=== PATIENT | female | born 1960 | race Caucasian/White ===

== ENCOUNTER 2017-05-02 13:05 | Inpatient (IN) | payer MEDICARE, OTHER ==
[~2017-05-02] VITALS: Ht 167.6 cm; Wt 79.4 kg
--- NOTE | 2017-05-02 13:30 | NUR ---
PATIENT BROUGHT IN BY PRIVATE AMBULANCE FROM [facility] ON A 5150 HOLD FOR DTS FOR SI. PATIENT UPON ARRIVAL A/OX3,CALM AND COOPERATIVE.DENIES SI,HALLUCINATION AT THIS TIME. NO DISTRESS NOTED
[2017-05-02] MEDS ORDERED: TOPI100T38 PO (13:36)
[2017-05-02] MEDS ORDERED: CLON1TAB4 PO (13:36)
[2017-05-02] MEDS ORDERED: TRAZ-147 PO (13:36)
[2017-05-02] MEDS ORDERED: RISP2TAB5 PO (13:36)
[2017-05-02] MEDS ORDERED: HYDR-548 PO (13:36)
[2017-05-02] MEDS ORDERED: GABA-532 PO (13:36)
[2017-05-02] MEDS ORDERED: VENL100T4 PO (13:36)
[2017-05-02] MEDS ORDERED: OXYB10TA4 PO (13:36)
[2017-05-02 14:24] LABS: CARBON DIOXIDE 27 mmol/L (21-32); CHLORIDE 107 mmol/L (98-107); CREATININE 0.8 mg/dL (0.6-1.3); GLUCOSE 114 mg/dL (74-106); POTASSIUM 3.8 mmol/L (3.5-5.1); UREA NITROGEN, BLOOD 10 mg/dL (7-18)
[2017-05-02 14:31] LABS: BASOPHILS # (AUTO) 0.1 K/uL (0.0-8.0); BASOPHILS % (AUTO) 1.2 % (0.0-2.0); EOSINOPHILS # (AUTO) 0.1 K/uL (0.0-0.7); EOSINOPHILS % (AUTO) 0.6 % (0.0-7.0); HEMATOCRIT 42.7 % (37-47); LYMPHOCYTES # (AUTO) 1.7 K/UL (0.8-4.8); LYMPHOCYTES % (AUTO) 14.3 % (20.5-51.5); MEAN CORPUSCULAR HEMOGLOBIN 32.4 UUG (27.0-31.0); MEAN CORPUSCULAR HGB CONC 33 g/dL (32.0-37.0); MEAN CORPUSCULAR VOLUME 98.6 FL (81.0-99.0); MONOCYTES # (AUTO) 0.7 K/UL (0.1-1.30); MONOCYTES % (AUTO) 5.6 % (0.0-11.0); NEUTROPHILS # (AUTO) 9.5 K/UL (1.8-8.9); NEUTROPHILS % (AUTO) 78.3 % (38.5-71.5); PLATELET COUNT (AUTO) 234 K/UL (150-450); RED BLOOD CELL COUNT(AUTO) 4.33 MIL/UL (4.2-5.4); WHITE BLOOD COUNT (AUTO) 12.1 K/UL (4.0-11.2)
[2017-05-02 14:49] LABS: ALANINE AMINOTRANSFERASE 23 U/L (14-59); ALKALINE PHOSPHATASE 80 U/L (50-136); ASPARTATE AMINOTRANSFERASE 20 U/L (15-37); BILIRUBIN,DIRECT 0.2 mg/dL (0.0-0.2); BILIRUBIN,TOTAL 0.9 mg/dL (0.2-1.0); TOTAL PROTEIN, SERUM 6.7 g/dL (6.4-8.2)
[2017-05-02 14:57] LABS: ETHANOL < 3 MG/DL (0-0); THYROID STIMULATING HORMONE 0.969 mIU/mL (0.358-3.740)
[2017-05-02] MEDS ORDERED: IV NS 1000 ML 1,000 ML IV ONE (16:15)
[2017-05-02] MEDS ORDERED: LEVOFLOXACIN 750 MG/D5W 150 ML PIGGYBACK IV ONE (16:15)
--- NOTE | 2017-05-02 16:29 | NUR ---
Paged [facility] panel for admission. Waiting for Gray Marie DNP to call back
[2017-05-02] MEDS ORDERED: LEVOFLOXACIN 750MG/D5W 150 ML IV ONE (16:44)
[2017-05-02 17:07] LABS: *BILIRUBIN,URIN NEGATIVE (NEGATIVE); *BLOOD, URINE NEGATIVE (NEGATIVE); *CLARITY,URINE CLEAR (CLEAR); *COLOR,URINE YELLOW (YELLOW); *KETONES,URINE NEGATIVE (NEGATIVE); *PROTEIN,URINE NEGATIVE (NEGATIVE); *UROBILINOGEN,URINE 0.2 E.U./dl (NORMAL); LEUKOCYTE ESTERASE ,URINE NEGATIVE (NEGATIVE); NITRITE, URINE NEGATIVE (NEGATIVE); PH,URINE 8.5 (5.0-8.0); UGLUCOSE NEGATIVE (NEGATIVE)
[2017-05-02 17:23] LABS: BACTERIA,URINE NONE SEEN /HPF (NONE SEEN); RBC,URINE 0-3 /HPF (0-3); SQUAMOUS EPITHELIAL CELL,UR FEW /HPF (NONE SEEN); WBC,URINE 0-3 /HPF (0-3)
--- NOTE | 2017-05-02 17:30 | NUR ---
Patient tolerated dinner with no distress noted
--- NOTE | 2017-05-02 17:39 | NUR ---
Unable to transfer to 2nd floor Tele due to unavailable 1:1 sitter per nursing design supervisor
[2017-05-02] MEDS: LORAZEPAM 0.5 MG TABLET PO ONE (17:54)
--- NOTE | 2017-05-02 17:55 | NUR ---
Patient C/O anxiety. Dr Milian aware. Order recieved and carried out
[2017-05-02] MEDS ORDERED: LORAZEPAM 1 MG TABLET ONE (18:06)
--- NOTE | 2017-05-02 19:14 | NUR ---
Transfered to 2nd floor Tele via louie
--- NOTE | 2017-05-02 19:30 | NUR ---
admit new patient to room 226,dx of pneumonia under care of ,patient on 5150 hold for suicidal ideation.patient awake,alert,oriented,not in apparent distress,patient darinel depressed,anxious but cooperative,NSR on tele monitor,v/s WNL,patient occ coughing,non productive,on o2 at 2l/m via n/c,1:1 sitter at bedside for safety.
[2017-05-02 20:31] VITALS: BP 134/92
[2017-05-02] MEDS ORDERED: ONDANSETRON 4 MG/2 ML VIAL IV PRN (21:30)
[2017-05-02] MEDS ORDERED: ENOXAPARIN SODIUM 40 MG/0.4 ML DISP.SYRIN SQ SCH (21:30)
[2017-05-02] MEDS ORDERED: AZITHROMYCIN 250 MG TABLET PO SCH (21:30)
[2017-05-02] MEDS ORDERED: ACETAMINOPHEN 325 MG TABLET PO PRN (21:30)
[2017-05-02 21:54] LABS: ABG HCO3 21.2 mmol/L; ABG PO2 75.2 mmHg (75.0-100.0); ABG SITE RIGHT RADIAL; ABG TOTAL HEMOGLOBIN 13.2 G/dL (12.0-16.0); COHb 1.7 % (0.5-1.5); MetHb 0.3 % (0.0-1.5); O2Hb 93.9 % (94.0-97.0); VENT MODE Room Air
[2017-05-02] MEDS ORDERED: AZITHROMYCIN 250 MG TABLET ONE (21:55)
[2017-05-02] MEDS ORDERED: risperiDONE 2 MG TABLET PO SCH (22:00)
[2017-05-02] MEDS ORDERED: TRAZODONE 100 MG TABLET PO ONE (22:00)
--- NOTE | 2017-05-02 22:00 | NUR ---
ABG'S DONE,PATIENT WENT TO CT CHEST W/O CONTEST.
[2017-05-02] MEDS ORDERED: risperiDONE 2 MG TABLET ONE (22:07)
--- NOTE | 2017-05-02 23:00 | NUR ---
PATIENT BACK FROM CT SCAN,RESTING WELL, NO ACUTE DISTRESS.
[2017-05-03] VITALS: BP 118/72
[2017-05-03 04:00] VITALS: BP 107/74
[2017-05-03] MEDS: HYDROCODONE/APAP 10-325 MG TABLET PO PRN ×2 (05:40→13:51)
[2017-05-03 05:43] VITALS: BP 109/72
--- NOTE | 2017-05-03 05:47 | NUR ---
PATIENT AMBULATE TO BATH ROOM,THEN C/O RIGHT UPPER CHEST DISCOMFORT, VITAL SIGNS RECHECK NO SIGNIFICANT CHANGED, NSR ON MONITOR,NORCO 10-325 MG PO GIVEN, CONTINUE CLOSELY MONITOR,INSTRUCTED PATIENT TO BE BEDREST ,CONTINUE O2 AT 2L/M VIA N/C.
[2017-05-03] MEDS ORDERED: HYDROCODONE/APAP 10-325 MG TABLET ONE (05:49)
[2017-05-03 06:46] LABS: BILIRUBIN,TOTAL 1.2 mg/dL (0.2-1.0); CREATININE 0.7 mg/dL (0.6-1.3); MAGNESIUM 1.8 mg/dL (1.8-2.4); PHOSPHOROUS 2.7 mg/dL (2.5-4.9); POTASSIUM 3.5 mmol/L (3.5-5.1); TOTAL PROTEIN, SERUM 6.7 g/dL (6.4-8.2)
--- NOTE | 2017-05-03 06:59 | NUR ---
SLEEPING,AROUSE EASILY,NO DISTRESS.
[2017-05-03 07:00] LABS: BASOPHILS % (AUTO) 0.3 % (0.0-2.0); EOSINOPHILS # (AUTO) 0.2 K/uL (0.0-0.7); HEMATOCRIT 40.7 % (37-47); HEMOGLOBIN 13.6 G/DL (12.0-16.0); LYMPHOCYTES # (AUTO) 1.9 K/UL (0.8-4.8); LYMPHOCYTES % (AUTO) 25.2 % (20.5-51.5); MEAN CORPUSCULAR HGB CONC 33 g/dL (32.0-37.0); MEAN CORPUSCULAR VOLUME 99.1 FL (81.0-99.0); MONOCYTES # (AUTO) 0.6 K/UL (0.1-1.30); MONOCYTES % (AUTO) 7.5 % (0.0-11.0); NEUTROPHILS # (AUTO) 4.9 K/UL (1.8-8.9); PLATELET COUNT (AUTO) 198 K/UL (150-450); RED BLOOD CELL COUNT(AUTO) 4.11 MIL/UL (4.2-5.4)
[2017-05-03 07:07] LABS: WHITE BLOOD COUNT (AUTO) 7.6 K/UL (4.0-11.2)
[2017-05-03] MEDS: GABAPENTIN 100 MG CAPSULE PO SCH ×2 (08:41→13:49)
[2017-05-03] MEDS ORDERED: VENLAFAXINE 75 MG TABLET PO SCH ×2 (09:00)
[2017-05-03] MEDS ORDERED: TOPIRAMATE 100 MG TABLET PO SCH (09:00)
[2017-05-03] MEDS ORDERED: CLONAZEPAM 1 MG TABLET PO SCH (09:00)
[2017-05-03] MEDS ORDERED: OXYBUTYNIN XL 5 MG TABSR PO SCH (09:00)
--- NOTE | 2017-05-03 09:04 | NUR ---
PT AWAKE IN BED, EATING BREAKFAST. IN NO ACUTE DISTRESS. REQUESTING EFFEXOR. CALLED PHARMACY TO VERIFY AND MEDICATIONS WERE GIVEN. SITTER AT BEDSIDE, CALL LIGHT IN REACH WILL CONTINUE TO MONITOR
[2017-05-03 11:35] VITALS: BP 110/64
[2017-05-03 15:00] VITALS: BP 102/72
--- NOTE | 2017-05-03 15:45 | NUR ---
DISCHARGE PROTOCOL FOLLOWED. IV REMOVED WITH NO REDNESS OR IRRITATION NOTED. ALL BELONGINGS ACCOUNTED FOR AND SENT WITH PT. PT TAKEN DOWN TO MHU IN WHEELCHAIR ACCOMPANIED BY MYSELF AND OTHER RN
[2017-05-03] MEDS ORDERED: AZIT250T6 PO (18:22)
[2017-05-03] MEDS ORDERED: TRAZODONE 100 MG TABLET PO SCH (21:00)
[2017-05-03] MEDS ORDERED: ENOXAPARIN SODIUM 40 MG/0.4 ML DISP.SYRIN SQ SCH ×2 (21:00)
[2017-05-03] MEDS ORDERED: risperiDONE 2 MG TABLET PO SCH (21:00)
== END 2017-05-03 15:45 | DRG 194 ==
LOC: ER 13:21 → TELE 18:50 → MED 05-03 12:25
PROVIDERS: ADMIT Nurse Practitioner Acute Care; ATTEND Nurse Practitioner Acute Care
DX: J15.9 Unspecified bacterial pneumonia (principal); J91.8 Pleural effusion in other conditions classified elsewhere; F31.60 Bipolar disorder, current episode mixed, unspecified; F10.20 Alcohol dependence, uncomplicated; F17.210 Nicotine dependence, cigarettes, uncomplicated; R09.02 Hypoxemia; T42.6X2D Poisoning by other antiepileptic and sedative-hypnotic drugs, intentional self-harm, subsequent encounter; T51.0X2D Toxic effect of ethanol, intentional self-harm, subsequent encounter; Z96.619 Presence of unspecified artificial shoulder joint; Z79.899 Other long term (current) drug therapy
CPT/HCPCS: 36415; 36600; 70030-TC; 71010; 71250; 83735; 84100; 84443; 85025; 87040; 87077; 87086; 93005; 93307; A4663; G0480; J1650; J1956; J7030; Q0144

== ENCOUNTER 2017-05-03 16:06 | Inpatient (IN) | payer MEDICARE, OTHER ==
[~2017-05-03] VITALS: Ht 167.6 cm; Wt 78.9 kg
--- NOTE | 2017-05-03 15:30 | NUR ---
Pt admitted to unit via w/c accompanied by 2nd floor medsurg nurse. Denies pain or discomfort at this time. Pleasant upon approach. Denies Si, but admits to feeling depressed, and it quite teary at this time, very sad disposition and flat affect. No aggressive or combative behavior. Toured unit and explained unit rules.
[~2017-05-03 16:06] MED LIST: CLON1TAB4 PO; GABA-532 PO; HYDR-548 PO; OXYB10TA4 PO; RISP2TAB5 PO; TOPI100T38 PO; TRAZ-147 PO; VENL100T4 PO
[2017-05-03] MEDS ORDERED: ACETAMINOPHEN 325 MG TABLET PO PRN (17:00)
[2017-05-03] MEDS ORDERED: MAGNESIUM HYDROXIDE 30 ML LIQUID UDC PO PRN (17:00)
[2017-05-03] MEDS ORDERED: MAG HYDROX/AL HYDROX/SIMETH 30 ML LIQUID UDC PO PRN (17:00)
[2017-05-03] MEDS ORDERED: TEMAZEPAM 7.5 MG CAPSULE PO PRN (17:00)
[2017-05-03] MEDS ORDERED: AZIT250T6 PO (18:22)
[2017-05-03 20:29] VITALS: BP 123/63
[2017-05-03] MEDS: LORAZEPAM 0.5 MG TABLET PO PRN (20:43)
[2017-05-04] MEDS ORDERED: HYDROCODONE/APAP 10-325 MG TABLET PO PRN (00:15)
[2017-05-04 07:51] VITALS: BP 103/67
[2017-05-04] MEDS ORDERED: TOPIRAMATE 100 MG TABLET PO SCH (09:00)
[2017-05-04] MEDS: LORAZEPAM 0.5 MG TABLET PO PRN ×2 (09:09→16:34)
[2017-05-04] MEDS: OXYBUTYNIN XL 5 MG TABSR PO SCH (09:09)
[2017-05-04] MEDS: VENLAFAXINE XR 75 MG CAP.SR.24H PO SCH ×2 (11:15→17:41)
[2017-05-04] MEDS: GABAPENTIN 100 MG CAPSULE PO SCH ×3 (11:16→17:41)
--- NOTE | 2017-05-04 12:45 | NUR ---
GPS/RN- 1300 GABAPENTIN held afternoon medication, dose to close to am dose, as patient received am dose at 1111am, continue to monitor
--- NOTE | 2017-05-04 14:28 | NUR ---
GPS.RN- EKG DONE, CURRENT QTC 441, PHARMACY NOTIFIED, SPOKE WITH GRACIELA. PENDING AZITHROMYCIN MEDICATION DUE TO VERIFICATION OF QTC
--- NOTE | 2017-05-04 15:07 | NUR ---
Initial discharge instructions: Pt resides at home alone [[id number] [address]].Per pt,she would like to return home upon discharge.Spoke with pt's sister and mother,who reported they feel the pt would benefit from other placement.SW will speak with pt,family,and MD regarding appropriate discharge plans.SW will form a safe and proper discharge plan.
[2017-05-04 15:57] VITALS: BP 132/82
[2017-05-04] MEDS: AZITHROMYCIN 250 MG TABLET PO SCH (16:36)
[2017-05-04] MEDS ORDERED: GUAIFENESIN/DEXTROMETHORPHAN 5 ML UDC PO PRN (18:00)
--- NOTE | 2017-05-04 18:34 | NUR ---
GPS/RN- patient reported having loose stools, advised by nursing staff to notify nursing and to not flush, bowel movements reported per patient is loose, not currently observed by staff, patient redirected again. Addendum: 05/04/17 at 1835 by RIMA ALVAREZ RN Amended: Links added.
--- NOTE | 2017-05-04 19:40 | NUR ---
PT AT THE NURSING STATION STATING SHE MOVED HER BOWELS, STAFF NOTED MAINLY URINE WITH POSSIBLE SLIGHT BM, PT ARGUING THAT'S STOOL, UNABLE TO SEND STOOL SAMPLE, WILL CONTINUE TO MONITOR CLOSELY.
--- NOTE | 2017-05-04 20:00 | NUR ---
PT IS MED COMPLIANT, ALSO ASKING FOR SLEEP MEDICATION AT THIS TIME, WILL CONTINUE TO MONITOR CLOSELY.
[2017-05-04 20:04] VITALS: BP 113/67
[2017-05-04] MEDS: risperiDONE 2 MG TABLET PO SCH (20:17)
[2017-05-04] MEDS: TOPIRAMATE 100 MG TABLET PO SCH (20:18)
[2017-05-04] MEDS: TRAZODONE 100 MG TABLET PO SCH (20:18)
[2017-05-05] MEDS: LORAZEPAM 0.5 MG TABLET PO PRN ×2 (05:19→18:48)
[2017-05-05 07:30] VITALS: BP 132/78
[2017-05-05 08:36] LABS: BASOPHILS % (AUTO) 0.4 % (0.0-2.0); EOSINOPHILS # (AUTO) 0.1 K/uL (0.0-0.7); EOSINOPHILS % (AUTO) 1.5 % (0.0-7.0); HEMATOCRIT 42.4 % (37-47); HEMOGLOBIN 14.2 G/DL (12.0-16.0); LYMPHOCYTES # (AUTO) 2.3 K/UL (0.8-4.8); LYMPHOCYTES % (AUTO) 36.3 % (20.5-51.5); MEAN CORPUSCULAR HGB CONC 33 g/dL (32.0-37.0); MEAN CORPUSCULAR VOLUME 98.9 FL (81.0-99.0); MONOCYTES # (AUTO) 0.7 K/UL (0.1-1.30); MONOCYTES % (AUTO) 10.9 % (0.0-11.0); NEUTROPHILS # (AUTO) 3.2 K/UL (1.8-8.9); NEUTROPHILS % (AUTO) 50.9 % (38.5-71.5); PLATELET COUNT (AUTO) 203 K/UL (150-450); RED BLOOD CELL COUNT(AUTO) 4.28 MIL/UL (4.2-5.4); WHITE BLOOD COUNT (AUTO) 6.3 K/UL (4.0-11.2)
[2017-05-05] MEDS: NICOTINE 14 MG/24HR PATCH TD SCH (09:00)
[2017-05-05] MEDS: TOPIRAMATE 100 MG TABLET PO SCH ×2 (09:15→20:17)
[2017-05-05] MEDS: GABAPENTIN 100 MG CAPSULE PO SCH ×3 (09:15→17:09)
[2017-05-05] MEDS: OXYBUTYNIN XL 5 MG TABSR PO SCH (09:15)
[2017-05-05] MEDS: VENLAFAXINE XR 75 MG CAP.SR.24H PO SCH ×2 (09:15→17:09)
[2017-05-05 09:30] LABS: BILIRUBIN,TOTAL 0.4 mg/dL (0.2-1.0); CREATININE 0.7 mg/dL (0.6-1.3); MAGNESIUM 1.7 mg/dL (1.8-2.4); PHOSPHOROUS 3.9 mg/dL (2.5-4.9); POTASSIUM 3.5 mmol/L (3.5-5.1); TOTAL PROTEIN, SERUM 7.4 g/dL (6.4-8.2)
[2017-05-05 10:37] LABS: THYROID STIMULATING HORMONE 1.389 mIU/mL (0.358-3.740)
[2017-05-05] MEDS ORDERED: MAGNESIUM OXIDE 400 MG TABLET PO ONE (11:00)
[2017-05-05] MEDS: AZITHROMYCIN 250 MG TABLET PO SCH (12:09)
[2017-05-05 16:00] VITALS: BP 129/75
[2017-05-05] MEDS: risperiDONE 2 MG TABLET PO SCH (20:17)
[2017-05-05] MEDS: TRAZODONE 100 MG TABLET PO SCH (20:17)
[2017-05-05 20:33] VITALS: BP 112/60
[2017-05-06] MEDS: LORAZEPAM 0.5 MG TABLET PO PRN (04:37)
[2017-05-06 07:30] VITALS: BP 142/82
[2017-05-06] MEDS: GABAPENTIN 100 MG CAPSULE PO SCH ×2 (09:23→12:20)
[2017-05-06] MEDS: TOPIRAMATE 100 MG TABLET PO SCH (09:23)
[2017-05-06] MEDS: AZITHROMYCIN 250 MG TABLET PO SCH (09:24)
[2017-05-06] MEDS: OXYBUTYNIN XL 5 MG TABSR PO SCH (09:24)
[2017-05-06] MEDS: VENLAFAXINE XR 75 MG CAP.SR.24H PO SCH (09:24)
[2017-05-06] MEDS: NICOTINE 14 MG/24HR PATCH TD SCH (09:24)
--- NOTE | 2017-05-06 10:17 | NUR ---
DC Note: Patient will be discharged back home [[id number] [place] [address]] at 12:00 pm. Patient will be provided with a taxi voucher. SW spoke with Epidemiology Investigator, Padmini who stated she would be available between 12:00 pm- 4:00 pm to hand the patient her apartment keys. Spoke with patients sister Tere [[phone]] who is aware and agreeable with discharge plans. Patient is aware and agreeable with discharge plans as well. Patient will follow-up with (Operations Administrator) [[address], [place] [address]; [phone]]. Patient was referred to [facility] at [facility] [[address]; [phone]] for mental health follow-up. Patient is planning to follow up with [facility] to discuss smoking cessation and address substance abuse dependency. Patient was also encouraged to present at [facility] [[address] [place] [address] ] at 9:00 am on 05/07/17 for intake screening. Patient was also referred to the Nicotine Anonymous meeting at [facility] [[address] [address]] on Wednesday05/09/17 at 9:00 am. Patient was also referred to , , . Additionally, patient was provided with outpatient mental health resources to [facility] , Chelsi Montanez , and the National Suicide Prevention Lifeline . Patient denies suicidal and homicidal ideation.
--- NOTE | 2017-05-06 13:00 | NUR ---
PT IS ALERT/ORIENTED X 4. PT IS CALM, PLEASANT ON APPROACH. PT DENIES S.I. PT IS BEING DISCHARGED BACK HOME VIA TAXI. DISCHARGE INSTRUCTIONS GIVEN TO THE PATIENT. PT VERBALIZES UNDERSTANDING. PT WAS GIVEN PRESCRIPTIONS FOR HER MEDICATIONS, PT VERBALIZES THAT SHE WILL TAKE IT TO HER PHARMACY.
== END 2017-05-06 13:00 | disposition home or self-care (01) | DRG 885 ==
LOC: GPS 16:06
PROVIDERS: ADMIT Psychiatry & Neurology Psychosomatic Medicine; ATTEND Nurse Practitioner Acute Care
DX: F31.60 Bipolar disorder, current episode mixed, unspecified (principal); E27.8 Other specified disorders of adrenal gland; F31.4 Bipolar disorder, current episode depressed, severe, without psychotic features; Z88.0 Allergy status to penicillin; F10.20 Alcohol dependence, uncomplicated; Y90.9 Presence of alcohol in blood, level not specified; F41.9 Anxiety disorder, unspecified; M48.54XD Collapsed vertebra, not elsewhere classified, thoracic region, subsequent encounter for fracture with routine healing; T42.6X2D Poisoning by other antiepileptic and sedative-hypnotic drugs, intentional self-harm, subsequent encounter; E83.42 Hypomagnesemia; E78.5 Hyperlipidemia, unspecified; F17.210 Nicotine dependence, cigarettes, uncomplicated; R19.7 Diarrhea, unspecified; R73.9 Hyperglycemia, unspecified; Z87.81 Personal history of (healed) traumatic fracture; Z79.899 Other long term (current) drug therapy
CPT/HCPCS: 36415; 83735; 84100; 84443; 85025; 93005; Q0144